=== PATIENT | male | born 1975 | race Caucasian/White ===

== ENCOUNTER 2018-11-17 11:03 | Inpatient (IN) | payer BC ==
[~2018-11-17] VITALS: Ht 175.3 cm; Wt 79.8 kg
[2018-11-17 11:03] VITALS: BP_SYST 136
--- NOTE | 2018-11-17 11:03 | NUR ---
BROUGHT BACK TO BED #8 AND TRIAGED. REPORT GIVEN TO ELIZA
--- NOTE | 2018-11-17 11:07 | NUR ---
Pt AAOx4 presents to ED c/o generalized weakness x 6 days with new onset of mild confusion witnessed by an son. Pt has been taking tylenol for intermittent fevers. Denies N/V/D. Pt lethargic, slow to respond with flat affect. Pt denies pain, but upon standing pt moaning and c/o pain to "joints." No other injuries/complaints per pt/noted. Will continue to monitor.
--- NOTE | 2018-11-17 11:10 | NUR ---
ER Dr. Sharpe at bedside examining patient.
--- NOTE | 2018-11-17 11:15 | NUR ---
Pt ambulated to bathroom with slow, shuffled gait to attempt to provide urine sample. in bathroom assisting pt. Pt unable to urinate at this time, assisted back to bed via wheelchair and placed in position of comfort. # 20 gauge angiocath placed to R AC. Use of asceptic technique. Opsite placed over site. Blood return noted. Blood for lab drawn from site. Flushed with 10 cc of normal saline. No evidence of infiltration noted. Patient tolerated well.
--- NOTE | 2018-11-17 11:55 | NUR ---
Radiology at bedside for CXR
[2018-11-17 12:11] LABS: HEMATOCRIT 49.7 % (36-54); HEMOGLOBIN 17.1 g/dL (14.0-18.0); MEAN CORPUSCULAR HEMOGLOBIN 30 pg (27-31); MEAN CORPUSCULAR HGB CONC 34 % (32-36); MEAN CORPUSCULAR VOLUME 87 fL (79.0-98.0); PLATELET COUNT (AUTO) 57 K/uL (130-430); RED BLOOD CELL COUNT(AUTO) 5.72 MIL/uL (4.2-6.2); RED CELL DISTRIBUTION WIDTH 14.4 % (9.0-15.0); WHITE BLOOD COUNT (AUTO) 25.9 K/uL (4.8-10.8)
[2018-11-17 12:15] LABS: INR 1.1 (0.80-1.20); PROTHROMBIN TIME 11.1 SECS (9.5-12.5)
[2018-11-17 12:23] LABS: ALANINE AMINOTRANSFERASE 73 U/L (12-78); ALBUMIN 2.7 g/dL (3.4-4.8); ANION GAP 13 (5-15); ASPARTATE AMINOTRANSFERASE 103 U/L (10-37); CALCIUM 8.3 mg/dL (8.4-11.0); CHLORIDE 88 mmol/L (98-107); CREATININE 1.93 mg/dL (0.55-1.30); FREE T4 (FREE THYROXINE) 1.4 ng/dl (0.8-1.5); GLUCOSE 148 mg/dL (70-99); SODIUM SERUM 127 mmol/L (136-145); TOTAL BILIRUBIN 5.8 mg/dL (0.0-1.0); UREA NITROGEN, BLOOD 27 mg/dL (8-21)
[2018-11-17 12:25] LABS: GFR AFRICAN AMERICAN 49 mL/min (>90); POTASSIUM 2.7 mmol/L (3.5-5.1)
[2018-11-17 12:26] LABS: ALCOHOL, BLOOD < 3 mg/dL (<10)
[2018-11-17 12:40] LABS: BAND % (MANUAL) 6 % (0-6); BASOPHILS % (MANUAL) 0 % (0-2); EOSINOPHILS % (MANUAL) 0 % (0-7); LYMPHOCYTES % (MANUAL) 2 % (20-46); MONOCYTES % (MANUAL) 4 % (0-11)
[2018-11-17] MEDS ORDERED: cefTRIAXone 1 GM IVPB PREMIX 50 ML IV ONE (13:00)
[2018-11-17] MEDS ORDERED: POTASSIUM CHLORIDE 20 MEQ/PKT PACKET PO ONE (13:00)
[2018-11-17] MEDS ORDERED: NACL 0.9% 1,000 ML IV ONE (13:00)
[2018-11-17] MEDS ORDERED: KCL 40 mEq in 100 mL (PREMIX) 100 ML IV ONE (13:00)
[2018-11-17 13:40] LABS: BILIRUBIN,URINE NEGATIVE (NEGATIVE); BLOOD, URINE 3+ (NEGATIVE); CLARITY/URINE CLEAR (CLEAR); COLOR,URINE YELLOW (YELLOW); GLUCOSE,URINE NEGATIVE (NEGATIVE); KETONES,URINE TRACE (NEGATIVE); LEUKOCYTE ESTERASE ,URINE NEGATIVE (NEGATIVE); NITRITE, URINE NEGATIVE (NEGATIVE); PH,URINE 5.5 (5.0-8.0); PROTEIN URINE 1+ (NEGATIVE)
[2018-11-17] MEDS ORDERED: POTASSIUM CHLORIDE 40 MEQ in NS 250 ML IV ONE (14:00)
--- NOTE | 2018-11-17 14:02 | NUR ---
TAKEN TO RADIOLOGY FOR TESTING
[2018-11-17 14:08] LABS: BARBITURATE, URINE NEGATIVE (NEG <=200); BENZODIAZEPINE, URINE NEGATIVE (NEG <=150); CANNABINOID, URINE NEGATIVE (NEG <=50); COCAINE, URINE NEGATIVE (NEG <=150); METHAMPHETAMINES SCREEN,URINE NEGATIVE (NEG <=500); OPIATE, URINE NEGATIVE (NEG <=100); PHENCYCLIDINE SCREEN,URINE NEGATIVE (NEG <=25); UR TRICYCLIC ANTIDEPRESSANTS NEGATIVE (NEG <=300); URINE AMPHETAMINE NEGATIVE (NEG <=500); URINE METHADONE NEGATIVE (NEG <=200); URINE OXYCODONE SCREEN NEGATIVE (NEG <=100); URINE PROPOXYPHENE SCREEN NEGATIVE (NEG <=300)
[2018-11-17 14:21] LABS: BACTERIA,URINE FEW /HPF (None Seen); FINE GRANULAR CASTS,URINE 0-10 /LPF (None Seen); URINE AMORPHOUS URATE 1+ /HPF (None Seen)
--- NOTE | 2018-11-17 14:37 | NUR ---
Pt states he takes no home medications.
--- NOTE | 2018-11-17 15:03 | NUR ---
ADMISSION NOTE Received patient from ER via cherelle, received report from Reji BEAULIEU. Patient admitted with diagnosis of Acute Colitis, Dehydration. Patient oriented to hospital routine, call light, toileting and safety-patient verbalized understanding.
[2018-11-17] MEDS ORDERED: ONDANSETRON HCL 4 MG/2 ML VIAL IVP PRN (15:15)
--- NOTE | 2018-11-17 15:20 | NUR ---
Patient will be admitted to [facility]. Admitted to Telemetry unit. Will go to room 122-a. Belongings list completed. Summary report printed. Report will be given at bedside. Transfer to tele via ACLS protocol. Licensed nurse present. IV present no signs or symptoms of infiltration.
[2018-11-17] MEDS ORDERED: LEVOFLOXACIN 500 MG/D5W 100 ML IV SCH (15:30)
[2018-11-17 15:35] VITALS: BP_SYST 114
--- NOTE | 2018-11-17 15:47 | NUR ---
round: Dr. Ramirez makes round spoke to the patient and the . Then he has new orders, including Antibiotics.
--- NOTE | 2018-11-17 16:18 | NUR ---
CONSULTATION PAGED/CALLED Reason for Consultation: [] ACUTE COLITIS Person Who was Notified: [] DR FRANK (WAS IN [facility]) Consulting Physician: [] DR FRANK Wharf Tender Specialty: [] ID Ordering Physician: [] DR MORALES
--- NOTE | 2018-11-17 16:19 | NUR ---
CONSULTATION PAGED/CALLED Reason for Consultation: [] ACUTE COLITIS Person Who was Notified: [] [place] Consulting Physician: [] DR BOYER Loss Prevention Coordinator Specialty: [] GI Ordering Physician: [] DR MORALES
[2018-11-17 16:29] VITALS: BP_SYST 101
--- NOTE | 2018-11-17 16:32 | NUR ---
ROUNDS Pt assisted to the bathroom, had diarrhea-pt assisted back to bed. Note pt very weak from the diarrhea this past weak. Dr. Delatorre here to see pt-stated he will order stool collection. Pt's family at bedside. Call light within reach.
[2018-11-17] MEDS: KCL 20 mEq in D5NS 1000 mL 1,000 ML IV SCH (16:57)
--- NOTE | 2018-11-17 17:45 | NUR ---
Critical result: Page Dr. Flores due to the result of Procalcitonin critical =24.95. Addendum: 11/17/18 at 1810 by Jose Chapman RN Also page Dr. Ramirez with the same reason. Because Procalcitonin was ordered by both Zaki.
[2018-11-17] MEDS: PIPERACILLIN/TAZO 2.25G/DEX-IS 50 ML IV SCH (18:45)
[2018-11-17] MEDS ORDERED: MAGNESIUM CITRATE 300 ML ORAL SOLUTION PO ONE (19:00)
[2018-11-17] MEDS ORDERED: SORBITOL 70% SOLUTION, 30 ML UDBTL PO ONE (19:00)
--- NOTE | 2018-11-17 19:31 | NUR ---
CLOSING NOTE Pt sitting up in bed visiting with his , no s/s resp distress, no c/o pain. C/o feeling "achy" off and on. Pt seen by Dr. Oquendo earlier and is aware of colonoscopy in the morning. Pt's Viktoriya at bedside. IVF infusing well to RAC at ordered rate with no s/s infiltration to site. Needs met, call light within reach.
--- NOTE | 2018-11-17 19:45 | NUR ---
Opening notes Patient resting in bed. No signs of distress noted. Breathing is even and unlabored. Patient has a temperature of 100.2, states he does not want any medications for it. Provided patient with ice packs. IV is patent and intact infusing fluids. No needs at this time. Call light with the patient. Safety precautions in place. Addendum: 11/17/18 at 2349 by Ilene Gonzalez RN Consent for colonoscopy signed by patient's Miranda Jimenez. Consent placed in chart.
[2018-11-17 20:00] VITALS: BP_SYST 130
[2018-11-17] MEDS ORDERED: ENOXAPARIN SODIUM 30 MG/0.3 ML SYRINGE SUBCUT SCH (21:00)
[2018-11-17] MEDS: metroNIDAZOLE 500 mg/NS 100 ML IV SCH (22:24)
[2018-11-17] MEDS ORDERED: LACTULOSE 20 GM/30 ML UDC PO SCH (22:30)
--- NOTE | 2018-11-17 22:30 | NUR ---
Spoke to Dr. Oquendo Informed MD medication sorbitol unavailable at this time. New orders for lactulose implemented and carried out.
--- NOTE | 2018-11-17 23:50 | NUR ---
Magnesium citrate prep complete
--- NOTE | 2018-11-18 | NUR ---
Patient NPO/Spoke to MD Spoke to Dr. Flores in regards to positive blood cultures = Gram + cocci. No new orders. Wait final result.
[2018-11-18 00:24] VITALS: BP_SYST 126
[2018-11-18] MEDS: PIPERACILLIN/TAZO 2.25G/DEX-IS 50 ML IV SCH ×5 (00:44→23:13)
--- NOTE | 2018-11-18 02:17 | NUR ---
Assisted patient to bedside commode Patient weak and needs assistance to commode.
--- NOTE | 2018-11-18 02:37 | NUR ---
Stool sent to lab for testing
[2018-11-18] MEDS: KCL 20 mEq in D5NS 1000 mL 1,000 ML IV SCH ×4 (03:53→22:45)
[2018-11-18] MEDS ORDERED: KCL 20 mEq in D5NS 1000 mL 1,000 ML IV ONE (03:59)
[2018-11-18] MEDS: metroNIDAZOLE 500 mg/NS 100 ML IV SCH ×3 (05:14→21:14)
--- NOTE | 2018-11-18 05:30 | NUR ---
Tap water enema 1500 ml of tap water instilled. Patient tolerated well. Bowels are clear and yellow tinged.
--- NOTE | 2018-11-18 06:45 | NUR ---
Patient had BM/Tap water enema noted brown sediments. Another tap water enema done. Instilled 1500 ml. Noted clear and yellow tinged bowels.
--- NOTE | 2018-11-18 07:00 | NUR ---
Closing notes Patient resting in bed. Hygiene care provided by GEOMAGNETICIAN. Patient denies any pain or discomfort at this time. IV is patent and intact. All needs met throughout the shift. NPO status maintain since midnight. Call light with the patient. Safety precautions in place. Will endorse care to day shift RN.
[2018-11-18 07:04] LABS: BASOPHILS # (AUTO) 0.2 K/uL (0.0-0.2); BASOPHILS % (AUTO) 0.5 % (0.0-2.0); EOSINOPHILS % (AUTO) 0.1 % (0.0-4.0); HEMATOCRIT 44.4 % (36-54); HEMOGLOBIN 15.1 g/dL (14.0-18.0); LYMPHOCYTES # (AUTO) 1.1 K/uL (1.0-5.5); LYMPHOCYTES % (AUTO) 3.8 % (20.5-51.5); MEAN CORPUSCULAR HEMOGLOBIN 30 pg (27-31); MEAN CORPUSCULAR HGB CONC 34 % (32-36); MEAN CORPUSCULAR VOLUME 88 fL (79.0-98.0); MONOCYTES % (AUTO) 6.9 % (1.7-9.3); NEUTROPHILS # (AUTO) 26.1 K/uL (1.8-7.7); PLATELET COUNT (AUTO) 78 K/uL (130-430); RED BLOOD CELL COUNT(AUTO) 5.07 MIL/uL (4.2-6.2); RED CELL DISTRIBUTION WIDTH 14.6 % (9.0-15.0); WHITE BLOOD COUNT (AUTO) 29.4 K/uL (4.8-10.8)
[2018-11-18 07:14] LABS: NEUTROPHILS % (AUTO) 88.7 % (40.0-70.0)
--- NOTE | 2018-11-18 07:25 | NUR ---
AM ROUNDS: BEDSIDE REPORT GIVEN BY NIGHT NURSE TERESA.PATIENT AWAKE DURING ROUNDS. INSTRUCTED PATIENT ,NOTHING BY MOUTH AND UNDERSTANDS THE TEACHINGS. FOR COLONOSCOPY TODAY. CALL LIGHT WITH IN REACH. BED LOCKED AT LOWEST POSITION.CONTINUE TO MONITOR.
[2018-11-18 07:41] LABS: PROTHROMBIN TIME 10.6 SECS (9.5-12.5)
[2018-11-18 07:55] VITALS: BP_SYST 117
[2018-11-18 07:59] LABS: ALANINE AMINOTRANSFERASE 72 U/L (12-78); ALBUMIN 2.2 g/dL (3.4-4.8); ANION GAP 13 (5-15); ASPARTATE AMINOTRANSFERASE 99 U/L (10-37); CALCIUM 7.4 mg/dL (8.4-11.0); CHLORIDE 94 mmol/L (98-107); CREATININE 1.71 mg/dL (0.55-1.30); GLUCOSE 159 mg/dL (70-99); LIPASE 233 U/L (73-393); PHOSPHORUS 2.4 mg/dL (2.7-4.5); SODIUM SERUM 129 mmol/L (136-145); UREA NITROGEN, BLOOD 29 mg/dL (8-21)
[2018-11-18] MEDS ORDERED: SIMETHICONE 40 MG/0.6 ML ML ONE (08:03)
[2018-11-18 08:05] LABS: GFR AFRICAN AMERICAN 57 mL/min (>90)
[2018-11-18 08:08] LABS: ACETAMINOPHEN < 1 ug/mL (1-30)
[2018-11-18] MEDS: MEPERIDINE HCL/PF 100 MG/ML AMP ONE ×2 (09:23→09:25)
[2018-11-18] MEDS: MIDAZOLAM HCL 5 MG/5 ML VIAL ONE ×3 (09:23→09:29)
[2018-11-18] MEDS ORDERED: MAGNESIUM SULFATE 4 GM in D5W 250 ML IV ONE (09:30)
[2018-11-18] MEDS ORDERED: POTASSIUM CHLORIDE 20 MEQ TAB.PRT.SR PO ONE (09:30)
[2018-11-18 10:20] VITALS: BP_SYST 112
--- NOTE | 2018-11-18 10:20 | NUR ---
BACK FROM GI: PATIENT DROWSY BUT ABLE TO RESPOND TO NAME AND OPEN HIS EYES. AT THE BEDSIDE. VITAL SIGNS TAKEN.AFEBRILE AND STABLE. NO DISTRESS.GI REPORT RECEIVED FROM ANGELICA.
--- NOTE | 2018-11-18 11:15 | NUR ---
ABDOMINAL US: ABDOMINAL US DONE AT THE BEDSIDE.
[2018-11-18 11:42] VITALS: BP_SYST 112
--- NOTE | 2018-11-18 12:35 | NUR ---
D/C Patient Patient given medication reconciliation form and D/C instructions. Exit Care provided. Patient verbalized understanding. MD discussed with daughter/ patient the results and treatment provided. Ambulatory with steady gait with assistance for discharge to home. Patient in stable condition, ID band removed. IV catheter removed, intact and dressing applied, no active bleeding. Rx of antibiotics/prilosec po given to daughter. Patient educated on pain management. All belongings sent with patient. Addendum: 11/18/18 at 1317 by Magalie Cuello RN not intended to the above patient.
--- NOTE | 2018-11-18 12:35 | NUR ---
D/C Patient Patient given medication reconciliation form and D/C instructions. Exit Care provided. Patient verbalized understanding. MD discussed with daughter/ patient the results and treatment provided. Ambulatory with steady gait for discharge to home. Patient in stable condition, ID band removed. IV catheter removed, intact and dressing applied, no active bleeding. Rx of antibiotics/prilosec given to patient's daughter. Patient educated on pain management. All belongings sent with patient. Addendum: 11/18/18 at 1316 by Magalie Cuello RN no notes-error Addendum: 11/18/18 at 1317 by Magalie Cuello RN not intended to the above patient.
--- NOTE | 2018-11-18 12:56 | NUR ---
Dietitian Recommendations * Consider advance diet if/when medically appropriate LP, RD Please refer to Nutrition Assessment for details.
--- NOTE | 2018-11-18 13:37 | NUR ---
Gi Paged: Called Dr. Oquendo's exchange and left message to medical assistance Alejandrina for diet.
[2018-11-18 14:02] LABS: HEPATITIS A AB, IgM Negative (Negative)
--- NOTE | 2018-11-18 16:25 | NUR ---
Transfer Care: Endorsed to Edwina Andino to [facility] care.Patient in stable condition.
--- NOTE | 2018-11-18 16:30 | NUR ---
Notes- assumed care from yadira RN, Pt in bed, resting. family at bedside. no acute distress noted. IVF infusing well. Enc to call for help as needed. Family verbalize understanding.
[2018-11-18 16:45] VITALS: BP_SYST 119
[2018-11-18] MEDS ORDERED: BISACODYL 5 MG TABLET.DR (DULCOLAX) PO ONE (17:00)
[2018-11-18] MEDS: VANCOMYCIN HCL 125 MG CAPSULE PO SCH ×2 (17:39→20:17)
--- NOTE | 2018-11-18 17:52 | NUR ---
Notes- Assisted pt to the bathroom with moderate assistance x2 person. pt feels very weak. refuses to use bedside commode. Safety precaution observed. will monitor.
--- NOTE | 2018-11-18 18:30 | NUR ---
NOTES- RESTING IN BED, FAMILY AT BEDSIDE. IVF INFUSING WELL.NO ACUTE DISTRESS NOTED. WILL ENDORSE
--- NOTE | 2018-11-18 19:10 | NUR ---
OPENING NOTES Late entry due to patient care. Bedside report received from dayshift nurse. Patient received lying in bed, lethargic, no s/s of acute distress. Breathing even and unlabored. IVF infusing well. IV site patent, no signs of infiltration or infection noted. Call light with patient, bed alarm on. Bed is locked and at lowest position. Will continue to monitor.
[2018-11-18 20:00] VITALS: BP_SYST 129
--- NOTE | 2018-11-18 21:00 | NUR ---
MAN CARE Patient receiving man care from MDS NURSE. Patient tolerating procedure well. No s/s of acute distress noted. All needs met at this time. Call light with patient. Bed alarm on. Will continue to monitor.
--- NOTE | 2018-11-18 23:00 | NUR ---
WALKED TO BATHROOM Patient got up on his own and walked to the bathroom to have BM. Patient assisted back to bed and cleaned by RN. New sheets, gown, and socks provided. Patient advised to call for help next time so he can be assisted to the bathroom, patient verbalized understanding. IVF infusing well. All needs met at this time. Call light with patient. Bed alarm on. Bed is locked and at lowest position. Will continue to monitor.
[2018-11-18] MEDS ORDERED: KCL 20 mEq in 100 mL (PREMIX) 100 ML IV ONE (23:44)
[2018-11-19 00:41] VITALS: BP_SYST 120
--- NOTE | 2018-11-19 01:00 | NUR ---
ROUNDS Patient in bed sleeping at this time. No s/s of acute distress noted. Breathing even and unlabored. IVF infusing well. Call light with patient. Bed alarm on. Will continue to monitor.
--- NOTE | 2018-11-19 03:00 | NUR ---
ROUNDS Patient sleeping comfortably. No signs of discomfort noted. Chest rise and fall even bilaterally. IVF infusing well. Call light with patient. Bed alarm on. Will continue to monitor.
--- NOTE | 2018-11-19 05:00 | NUR ---
ROUNDS Patient in bed sleeping at this time. No signs of discomfort noted. Chest rise and fall even bilaterally. Call light with patient. Bed alarm on. Will continue to monitor.
[2018-11-19] MEDS: PIPERACILLIN/TAZO 2.25G/DEX-IS 50 ML IV SCH ×4 (05:23→23:00)
[2018-11-19] MEDS: metroNIDAZOLE 500 mg/NS 100 ML IV SCH ×3 (05:57→21:07)
[2018-11-19] MEDS: KCL 20 mEq in D5NS 1000 mL 1,000 ML IV SCH ×3 (05:59→21:57)
--- NOTE | 2018-11-19 06:34 | NUR ---
CLOSING NOTES Patient in bed sleeping comfortably at this time. No s/s of acute distress noted. Breathing even and unlabored. IVF infusing well, IV site patent, no signs of infiltration or infection noted. All needs met throughout shift. Fall and safety precautions maintained throughout shift. Will continue to monitor until patient care is endorsed to oncoming dayshift nurse.
[2018-11-19 06:53] LABS: BASOPHILS % (AUTO) 0.2 % (0.0-2.0); EOSINOPHILS % (AUTO) 0.2 % (0.0-4.0); HEMATOCRIT 38.2 % (36-54); HEMOGLOBIN 13.1 g/dL (14.0-18.0); LYMPHOCYTES # (AUTO) 1.2 K/uL (1.0-5.5); LYMPHOCYTES % (AUTO) 5.3 % (20.5-51.5); MEAN CORPUSCULAR HEMOGLOBIN 30 pg (27-31); MEAN CORPUSCULAR HGB CONC 34 % (32-36); MEAN CORPUSCULAR VOLUME 88 fL (79.0-98.0); MONOCYTES # (AUTO) 1.6 K/uL (0.0-1.0); MONOCYTES % (AUTO) 7.2 % (1.7-9.3); NEUTROPHILS # (AUTO) 19.7 K/uL (1.8-7.7); PLATELET COUNT (AUTO) 99 K/uL (130-430); RED BLOOD CELL COUNT(AUTO) 4.35 MIL/uL (4.2-6.2); RED CELL DISTRIBUTION WIDTH 14.5 % (9.0-15.0); WHITE BLOOD COUNT (AUTO) 22.6 K/uL (4.8-10.8)
[2018-11-19 06:56] LABS: CALCIUM 7.2 mg/dL (8.4-11.0); CREATININE 1.37 mg/dL (0.55-1.30); PHOSPHORUS 2.7 mg/dL (2.7-4.5); POTASSIUM 3.1 mmol/L (3.5-5.1)
--- NOTE | 2018-11-19 07:30 | NUR ---
Opening Note patient resting in bed, awake and alert, denies pain, no signs of distress, educated patient on use of call light for assistance, verbalized understanding, call light and bedside table left within reach, safety precautions in place, bed alarm on, will continue to monitor
[2018-11-19 07:34] LABS: NEUTROPHILS % (AUTO) 87.1 % (40.0-70.0)
[2018-11-19 08:30] VITALS: BP_SYST 121
[2018-11-19] MEDS: VANCOMYCIN HCL 125 MG CAPSULE PO SCH ×4 (08:58→20:41)
--- NOTE | 2018-11-19 09:00 | NUR ---
Medications administered as scheduled, educated patient regarding med, verbalized understanding, he is lethargic in bed, patient denies pain, educated him on pain management and to let me know if he is in pain so I can inform MD, verbalized understanding, no other needs at this time, educated patient on use of call light for assistance, verbalized understanding, call light and bedside table left within reach, will continue to monitor
--- NOTE | 2018-11-19 10:45 | NUR ---
Visiting updated her with plan of care, verbalized understanding, will continue to monitor patient
--- NOTE | 2018-11-19 11:50 | NUR ---
Antibiotics hung at this time, educated patient and regarding med, verbalized understanding, IV site remains patent, safety precautions in place, will continue to monitor
[2018-11-19 12:29] VITALS: BP_SYST 116
--- NOTE | 2018-11-19 14:10 | NUR ---
New IV fluids hung at this time, also administered meds as scheduled, educated patient regarding meds, verbalized understanding, tolerated well, IV site remains patent, states it hurts to reach over to the table, asked if patient wanted anything for pain at this time, stated he doesn't want anything, stated "we'll just see how it goes." educated him to let me know if he needs anything or if his pain is intolerable, verbalized understanding, no other needs at this time, educated patient on use of call light for assistance, verbalized understanding, safety precautions in place, will continue to monitor
[2018-11-19] MEDS ORDERED: POTASSIUM CHLORIDE 20 MEQ TAB.PRT.SR PO ONE (15:00)
--- NOTE | 2018-11-19 15:08 | NUR ---
Dr. Anne Rounded examined patient, at bedside, stated all questions answered by MD at this time, will implement new orders
[2018-11-19 16:06] VITALS: BP_SYST 129
--- NOTE | 2018-11-19 17:17 | NUR ---
Meds administered as scheduled, educated patient regarding med, verbalized understanding, tolerated well, visitors at bedside, educated patient on use of call light for assistance, verbalized understanding, safety precautions in place, will continue to monitor
--- NOTE | 2018-11-19 19:10 | NUR ---
Closing Note patient resting in bed, awake and alert, visitors at bedside, IV fluids infusing, no complaints of pain at this time, educated patient on use of call light for assistance, verbalized understanding, call light and bedside table left within reach, endorsed to slot shift supervisor nurse
--- NOTE | 2018-11-19 19:10 | NUR ---
OPENING NOTES Bedside report received from dayshift nurse. Patient received lying in bed AOx3, watching TV, family members present at bedside. No s/s of acute distress noted. Breathing is even and unlabored. IVF infusing well, IV site patent, no signs of infiltration or infection noted. Patient denies any pain or discomfort at this time. Call light with patient. Bed alarm off at this time, patient and family members educated on its purpose and agree to have it on when family leaves later tonight. Bed is locked and at lowest position. Will continue to monitor.
[2018-11-19 20:00] VITALS: BP_SYST 125
--- NOTE | 2018-11-19 21:00 | NUR ---
ROUNDS Patient in the bathroom at this time. Patient escorted by his and son. Patient and family members informed to let RN know if they need any assistance, all verbalized understanding.
--- NOTE | 2018-11-19 23:00 | NUR ---
ROUNDS/IV ANTIBIOTIC Patient in bed sleeping. No signs of discomfort noted. Chest rise and fall even bilaterally. IV antibiotic hung at this time. IVF infusing well. Call light with patient. Will continue to monitor.
[2018-11-19 23:56] VITALS: BP_SYST 100
[2018-11-20 00:07] VITALS: BP_SYST 100; BP_SYST 120
[2018-11-20] MEDS: KCL 20 mEq in D5NS 1000 mL 1,000 ML IV SCH ×3 (00:07→21:39)
--- NOTE | 2018-11-20 01:00 | NUR ---
ROUNDS/EMPTIED URINAL Patient in bed sleeping at this time. No signs of discomfort noted. Chest rise and fall even bilaterally. IVF infusing well. Urinal emptied at this time. Call light with patient. Bed alarm on. Will continue to monitor.
[2018-11-20] MEDS: PIPERACILLIN/TAZO 2.25G/DEX-IS 50 ML IV SCH ×2 (04:59→11:18)
--- NOTE | 2018-11-20 05:00 | NUR ---
ROUNDS/IV ANTIBIOTIC Patient in bed resting. No signs of discomfort noted. Chest rise and fall even bilaterally. IV antibiotic hung, infusing well. Call light with patient. Bed alarm on. Will continue to monitor.
[2018-11-20] MEDS: metroNIDAZOLE 500 mg/NS 100 ML IV SCH ×3 (05:33→21:39)
--- NOTE | 2018-11-20 06:39 | NUR ---
CLOSING NOTES Patient in bed sleeping comfortably. No s/s of acute distress noted. Breathing is even and unlabored. IVF infusing well, IV site patent, no signs of infiltration or infection noted. All needs met throughout shift. Fall and safety precautions maintained throughout shift. Will continue to monitor until patient care is endorsed to oncoming day shift nurse.
[2018-11-20 06:49] LABS: BASOPHILS % (AUTO) 0.2 % (0.0-2.0); EOSINOPHILS # (AUTO) 0.1 K/uL (0.0-0.4); EOSINOPHILS % (AUTO) 0.5 % (0.0-4.0); HEMATOCRIT 36.7 % (36-54); HEMOGLOBIN 12.4 g/dL (14.0-18.0); LYMPHOCYTES # (AUTO) 1.1 K/uL (1.0-5.5); LYMPHOCYTES % (AUTO) 5.3 % (20.5-51.5); MEAN CORPUSCULAR HEMOGLOBIN 30 pg (27-31); MEAN CORPUSCULAR HGB CONC 34 % (32-36); MEAN CORPUSCULAR VOLUME 88 fL (79.0-98.0); MONOCYTES # (AUTO) 1.5 K/uL (0.0-1.0); MONOCYTES % (AUTO) 7.2 % (1.7-9.3); NEUTROPHILS # (AUTO) 18.2 K/uL (1.8-7.7); NEUTROPHILS % (AUTO) 86.8 % (40.0-70.0); PLATELET COUNT (AUTO) 145 K/uL (130-430); RED BLOOD CELL COUNT(AUTO) 4.18 MIL/uL (4.2-6.2); RED CELL DISTRIBUTION WIDTH 14.6 % (9.0-15.0)
--- NOTE | 2018-11-20 07:20 | NUR ---
Opening Note patient resting in bed, eyes closed, breathing unlabored and symmetrical, safety precautions remain in place, call light and bedside table left within reach, bed alarm on, will continue to monitor patient
[2018-11-20 08:10] VITALS: BP_SYST 119
[2018-11-20] MEDS: VANCOMYCIN HCL 125 MG CAPSULE PO SCH ×2 (08:21→14:48)
--- NOTE | 2018-11-20 08:21 | NUR ---
Medication given at this time as scheduled, educated patient regarding med, verbalized understanding, tolerated well, educated patient on use of call light for assistance, verbalized understanding, call light and bedside table left within reach, will continue to monitor patient
[2018-11-20 08:40] LABS: CALCIUM 7.1 mg/dL (8.4-11.0); CREATININE 1.56 mg/dL (0.55-1.30); POTASSIUM 3.5 mmol/L (3.5-5.1)
[2018-11-20 08:41] LABS: ALBUMIN 1.6 g/dL (3.4-4.8); TOTAL BILIRUBIN 2.5 mg/dL (0.0-1.0)
--- NOTE | 2018-11-20 10:00 | NUR ---
IV fluids hung patient resting in bed, IV site remains patent, educated patient on use of call light for assistance, verbalized understanding, call light and bedside table left within reach, will continue to monitor patient
[2018-11-20 10:45] LABS: INR 1.1 (0.80-1.20); PROTHROMBIN TIME 11.5 SECS (9.5-12.5)
--- NOTE | 2018-11-20 11:21 | NUR ---
Nutrition F/U RD reviewed pt's current EMR including diet Hx, physician notes, nursing notes, pertinent labs/meds/procedures, care trends and care activity. Current Diet Order: Soft Low Fiber/Citrus Subjective information: Pt seen sitting up in chair at time of RD visit. Pt denied any abd discomfort, denied any N/V. Pt also reported of tolerating current diet order. Breakfast tray at bedside, untouched. Pt stated that he will be working on breakfast soon. Per EMR, PO intake 50% average of 3 meals 11/19. Pt is not yet meeting adequate nutrition w/ current PO intake. Pt declined addition of ONS, RD encouraged pt to increase PO intake. EER re-calculated for increased nutrient needs for sepsis. Current PO intake: 50% average of 3 meals 11/19 (NEW) Estimated Energy Expenditure (kcals/day) 2195-0329 kcal/day (30-35 kcal/kg CBW for Sepsis) (NEW) Estimated Protein Required (g/day) 48-120 gm/day (0.6-1.5 gm/kg CBW for elevated Renal labs and Sepsis) Estimated Fluid Required (l/day) 2.4-2.8 L/day (30-35 ml/kg CBW for maintenance) Problem/Etiology/Signs/Symptoms Altered GI function related to unknown etiology as evidenced by Dx of acute colitis and dehydration. (*improved) Inadequate nutrient intake r/t altered GI function AEB PO intake <75% of estimated needs. (*new 11/20) Expected Outcomes/Goals - Monitor appetite, and PO intakes w/ goal of pt meeting at least 75% of estimated nutritional needs, labs trending WNL, normal GI function, and skin integrity/wt maintenance Dietitian Recommendations * Continue Soft Low Fiber/Citrus diet per MD orders. * Encourage pt to increase PO intake. Follow Up High Risk: F/U in 2-3days
--- NOTE | 2018-11-20 11:29 | NUR ---
Dietitian Recommendations * Continue Soft Low Fiber/Orrick diet per MD orders. * Encourage pt to increase PO intake. Please see Nutrition F/U note for details. HENRY, RD
[2018-11-20 12:50] VITALS: BP_SYST 120
[2018-11-20] MEDS ORDERED: VANCOMYCIN HCL 1 GM/NS PREMIX 250 ML IV ONE (13:15)
--- NOTE | 2018-11-20 13:30 | NUR ---
Patient taken to Commode weak, educated him on safety precautions, verbalized understanding, had a bowel movement, was returned to bed, educated patient on use of call light for assistance, verbalized understanding, call light and bedside table left within reach, will continue to monitor patient
--- NOTE | 2018-11-20 15:29 | NUR ---
Paged Dr. Anne for pain medication , called back and stated he will be by to see the patient first and will make rounds soon. will await MD rounds
[2018-11-20 16:11] VITALS: BP_SYST 104
[2018-11-20] MEDS ORDERED: VANCOMYCIN HCL ORAL SOLUTION 250 MG/5 ML, 80 ML PO SCH ×2 (16:21→16:33)
[2018-11-20] MEDS: VANCOMYCIN HCL 250 MG/5 ML PO SCH ×2 (17:38→20:58)
--- NOTE | 2018-11-20 17:40 | NUR ---
Mai Given PO/Dr. Anne Rounds patient educated regarding meds, verbalized understanding, tolerated well. MD rounded examined patient, will follow through with MD orders
--- NOTE | 2018-11-20 17:56 | NUR ---
Nephro consult called: for Dr. Price (Dr. Muro television cameraman), regarding [place], ordered by Dr. Anne, spoke with Erica at exchange.
[2018-11-20] MEDS ORDERED: traMADol HCL HCL 50 MG TABLET (ULTRAM) PO PRN (18:00)
--- NOTE | 2018-11-20 18:03 | NUR ---
Dr. Muro Called updated her with patient labs, verbalized understanding, stated she will be by tomorrow to see patient
--- NOTE | 2018-11-20 18:50 | NUR ---
Closing Note patient resting in bed, awake and alert, no signs of distress, patient stated 0/10 pain, educated him on pain management and PRN meds, verbalized understanding, IV fluids infusing, educated patient on use of call light for assistance, verbalized understanding, call light and bedside table left within reach, will endorse to welder 2nd shift nurse
--- NOTE | 2018-11-20 19:25 | NUR ---
OPENING NOTE Patient on BSC with RESIDENT CARE COORDINATOR at the bedside. Breathing unlabored and even on room air. No signs of distress, no needs at this time. Fall and safety precautions in place. Bed in lowest position, brake on, call light within reach. IVF infusing as ordered. Will continue to monitor.
[2018-11-20 20:05] VITALS: BP_SYST 121
--- NOTE | 2018-11-20 20:12 | NUR ---
MD KAMARA PAGED DR. FRANK; DR BWODEN ESTIMATOR JAYLEEN Addendum: 11/20/18 at 2018 by Adriana Baird [place]/ SPOKE WITH JAYLEEN
--- NOTE | 2018-11-20 20:16 | NUR ---
Dr. Muro at the bedside.
--- NOTE | 2018-11-20 20:50 | NUR ---
PAGED x2 SECOND PAGE SENT OUT TO DR. FRANK; DR. BOWDEN BLUEBERRY GROWER
[2018-11-20] MEDS: CEFEPIME 1 GM in D5W 50 ML IV SCH (20:58)
--- NOTE | 2018-11-20 21:05 | NUR ---
Med pass. IV abx hung
--- NOTE | 2018-11-20 21:42 | NUR ---
IV abx tom. New IVF tom. Emptied patient's urinal: 275cc
--- NOTE | 2018-11-20 22:01 | NUR ---
Dr. Delatorre called back. Informed him that blood culture ID came back. Dr. Delatorre ordered Vanco IV pharmacy to dose. Patient already received first dose of IV vanco today. Ordered entered. Addendum: 11/20/18 at 2203 by Ayla Zuniga RN Dr. Delatorre wants to keep patient on PO vanco and IV vanco.
--- NOTE | 2018-11-20 23:07 | NUR ---
Patient resting in bed with eyes closed. Breathing unlabored and even on room air. No signs of distress, no needs at this time. Fall and safety precautions in place. Bed in lowest position, brake on, alarm on, call light within reach. IVF infusing as ordered. Will continue to monitor.
[2018-11-21] VITALS: BP_SYST 112
[2018-11-21] MEDS ORDERED: VANCOMYCIN HCL 1,250 MG in NS 250 ML IV SCH (04:00)
[2018-11-21] MEDS ORDERED: VANCOMYCIN HCL 1000 MG/VIAL IV ONE (04:13)
[2018-11-21] MEDS ORDERED: VANCOMYCIN HCL 500 MG/VIAL IV ONE (04:13)
--- NOTE | 2018-11-21 04:26 | NUR ---
IV abx hung
--- NOTE | 2018-11-21 04:36 | NUR ---
Patient c/o right arm pain. Administered PRN tramadol PO as ordered
[2018-11-21] MEDS: KCL 20 mEq in D5NS 1000 mL 1,000 ML IV SCH ×2 (06:00→12:36)
[2018-11-21 06:29] LABS: BASOPHILS # (AUTO) 0.1 K/uL (0.0-0.2); BASOPHILS % (AUTO) 0.7 % (0.0-2.0); EOSINOPHILS # (AUTO) 0.1 K/uL (0.0-0.4); EOSINOPHILS % (AUTO) 0.3 % (0.0-4.0); HEMATOCRIT 36.7 % (36-54); HEMOGLOBIN 12.5 g/dL (14.0-18.0); LYMPHOCYTES # (AUTO) 1.3 K/uL (1.0-5.5); LYMPHOCYTES % (AUTO) 6.4 % (20.5-51.5); MEAN CORPUSCULAR HEMOGLOBIN 30 pg (27-31); MEAN CORPUSCULAR HGB CONC 34 % (32-36); MEAN CORPUSCULAR VOLUME 89 fL (79.0-98.0); MONOCYTES % (AUTO) 5.2 % (1.7-9.3); NEUTROPHILS # (AUTO) 17.1 K/uL (1.8-7.7); NEUTROPHILS % (AUTO) 87.4 % (40.0-70.0); PLATELET COUNT (AUTO) 217 K/uL (130-430); RED BLOOD CELL COUNT(AUTO) 4.13 MIL/uL (4.2-6.2); RED CELL DISTRIBUTION WIDTH 14.7 % (9.0-15.0); WHITE BLOOD COUNT (AUTO) 19.6 K/uL (4.8-10.8)
[2018-11-21] MEDS: metroNIDAZOLE 500 mg/NS 100 ML IV SCH ×3 (06:29→21:42)
--- NOTE | 2018-11-21 06:31 | NUR ---
IV abx hung
--- NOTE | 2018-11-21 06:33 | NUR ---
CLOSING NOTE Patient resting in bed with eyes closed. Breathing unlabored and even on room air. No signs of distress, no needs at this time. Fall and safety precautions in place. Bed in lowest position, brake on, alarm on, call light within reach. IVF infusing as ordered. Will endorse cares to day shift nurse.
[2018-11-21 07:00] LABS: CALCIUM 7.4 mg/dL (8.4-11.0); CREATININE 1.65 mg/dL (0.55-1.30); POTASSIUM 3.7 mmol/L (3.5-5.1)
--- NOTE | 2018-11-21 07:15 | NUR ---
Opening note Patient resting in bed, A/O x4. No SOB, no complaints of pain. Iv site patent, intact. and infusing as ordered. No infiltration noted. Bowel sounds active, Lung sounds clear. On contact Isolation precautions, fall precautions, reinforced. Bed kept in lowest position, bed alarm on, educated patient on the call light system, verbalized understanding. call light within reach. Will continue to monitor.
[2018-11-21 08:29] VITALS: BP_SYST 106
[2018-11-21] MEDS: CEFEPIME 1 GM in D5W 50 ML IV SCH (09:11)
[2018-11-21] MEDS: VANCOMYCIN HCL 250 MG/5 ML PO SCH ×2 (09:12→13:56)
--- NOTE | 2018-11-21 10:00 | NUR ---
Rounds Patient resting in bed, no complaints of pain, A/O x 3 at this time.
[2018-11-21 12:34] VITALS: BP_SYST 123
--- NOTE | 2018-11-21 13:19 | NUR ---
BRP: Assisted by ASSOCIATE APPLICATION DEVELOPER to the restroom. Offered to seat on the chair but wants to go back to bed. Encouraged to increase ambulation, patient and spouse verbalized understanding.
--- NOTE | 2018-11-21 14:18 | NUR ---
Rounds Patient resting in bed, family at bedside. No complaints of pain. Patient is A/Ox 4 at this time. no nausea, no vomiting.
--- NOTE | 2018-11-21 16:06 | NUR ---
IV site Reinserted IV on left hand 22 gauge, patent, intact, and infusing as ordered.
--- NOTE | 2018-11-21 16:20 | NUR ---
ACTIVITY: Assisted to bedside chair. Encouraged to increase ambulation/ activity. Verbalized understanding.
[2018-11-21 16:42] VITALS: BP_SYST 129
--- NOTE | 2018-11-21 19:11 | NUR ---
Closing note Patient resting in bed, A/O x4. Family at bedtime. No SOB, no complaints of pain. Iv site patent, intact. and infusing as ordered. No infiltration noted. Bowel sounds active, Lung sounds clear. On contact Isolation precautions, fall precautions, reinforced. Bed kept in lowest position, bed alarm on, educated patient on the call light system, verbalized understanding. call light within reach. All needs met at this time
--- NOTE | 2018-11-21 19:20 | NUR ---
OPENING NOTE Received report from Jasmin. Patient resting in bed awake, alert, oriented x4. Breathing unlabored and even on room air. No signs of distress, no needs at this time. Fall, safety, contact precautions in place. Bed in lowest position, brake on, alarm on, call light within reach. Will continue to monitor.
[2018-11-21] MEDS: ceFAZolin SODIUM 1 GM in D5W 50 ML IV SCH (20:24)
--- NOTE | 2018-11-21 20:25 | NUR ---
IV abx hung. Emptied urinal: 150cc
[2018-11-21 20:30] VITALS: BP_SYST 115
--- NOTE | 2018-11-21 21:43 | NUR ---
IV abx hung
--- NOTE | 2018-11-21 23:41 | NUR ---
Patient resting in bed awake, alert, oriented x4. Breathing unlabored and even on room air. No signs of distress, no needs at this time. Fall, safety, contact precautions in place. Bed in lowest position, brake on, alarm on, call light within reach. Will continue to monitor.
[2018-11-22] MEDS: KCL 20 mEq in D5NS 1000 mL 1,000 ML IV SCH ×4 (01:22→22:23)
--- NOTE | 2018-11-22 01:23 | NUR ---
New IVF hung
[2018-11-22 01:39] VITALS: BP_SYST 125
--- NOTE | 2018-11-22 03:53 | NUR ---
Patient resting in bed awake, alert, oriented x4. Breathing unlabored and even on room air. No signs of distress, no needs at this time. Fall, safety, contact precautions in place. Bed in lowest position, brake on, alarm on, call light within reach. Will continue to monitor. Addendum: 11/22/18 at 0354 by Ayla Zuniga RN Patient resting in bed with eyes closed. Breathing unlabored and even on room air. No signs of distress, no needs at this time. Fall, safety, contact precautions in place. Bed in lowest position, brake on, alarm on, call light within reach. IVF infusing as ordered. Will continue to monitor.
[2018-11-22] MEDS: metroNIDAZOLE 500 mg/NS 100 ML IV SCH ×3 (05:40→23:03)
--- NOTE | 2018-11-22 05:43 | NUR ---
IV abx hung
[2018-11-22 06:34] LABS: BASOPHILS # (AUTO) 0.2 K/uL (0.0-0.2); BASOPHILS % (AUTO) 0.9 % (0.0-2.0); EOSINOPHILS # (AUTO) 0.1 K/uL (0.0-0.4); EOSINOPHILS % (AUTO) 0.8 % (0.0-4.0); HEMATOCRIT 34.9 % (36-54); HEMOGLOBIN 11.8 g/dL (14.0-18.0); LYMPHOCYTES # (AUTO) 1.4 K/uL (1.0-5.5); LYMPHOCYTES % (AUTO) 7.2 % (20.5-51.5); MEAN CORPUSCULAR HEMOGLOBIN 30 pg (27-31); MEAN CORPUSCULAR HGB CONC 34 % (32-36); MEAN CORPUSCULAR VOLUME 90 fL (79.0-98.0); MONOCYTES # (AUTO) 0.8 K/uL (0.0-1.0); MONOCYTES % (AUTO) 4.1 % (1.7-9.3); NEUTROPHILS # (AUTO) 16.7 K/uL (1.8-7.7); PLATELET COUNT (AUTO) 274 K/uL (130-430); RED BLOOD CELL COUNT(AUTO) 3.88 MIL/uL (4.2-6.2); RED CELL DISTRIBUTION WIDTH 14.8 % (9.0-15.0); WHITE BLOOD COUNT (AUTO) 19.2 K/uL (4.8-10.8)
--- NOTE | 2018-11-22 06:47 | NUR ---
CLOSING NOTE Patient resting in bed with eyes closed. Breathing unlabored and even on room air. No signs of distress, no needs at this time. Fall, safety, contact precautions in place. Bed in lowest position, brake on, alarm. IVF infusing as ordered. Will endorse cares to day shift nurse.
[2018-11-22 07:15] LABS: CALCIUM 7.2 mg/dL (8.4-11.0); CREATININE 1.71 mg/dL (0.55-1.30); POTASSIUM 3.8 mmol/L (3.5-5.1)
--- NOTE | 2018-11-22 07:20 | NUR ---
Opening note Patient resting in bed, A/O x4. No SOB, no complaints of pain. Iv site patent, intact.No infiltration noted. Bowel sounds active, Lung sounds clear. On contact Isolation precautions, fall precautions, reinforced. Bed kept in lowest position, educated patient on the call light system, verbalized understanding. Call light within reach. Will continue to monitor.
[2018-11-22 07:33] LABS: ALBUMIN 1.6 g/dL (3.4-4.8); TOTAL BILIRUBIN 1.5 mg/dL (0.0-1.0)
[2018-11-22 08:21] VITALS: BP_SYST 130
[2018-11-22] MEDS: ceFAZolin SODIUM 1 GM in D5W 50 ML IV SCH ×2 (09:09→22:23)
--- NOTE | 2018-11-22 11:45 | NUR ---
Post Void Bladder Scan: Scan was done, no residual urine detected.
[2018-11-22 12:40] VITALS: BP_SYST 121
--- NOTE | 2018-11-22 15:07 | NUR ---
Rounds Patient sitting up in chair at this time. Family at bedside. No complaints of pain. Patient ate lunch tolerated well. No nausea, no vomiting.
[2018-11-22 16:51] VITALS: BP_SYST 129
--- NOTE | 2018-11-22 18:21 | NUR ---
Closing note Patient sitting up in chair, bed, A/O x4. No SOB, no complaints of pain. Iv site patent, intact. and infusing as ordered. No infiltration noted. Bowel sounds active, Lung sounds clear. On contact Isolation precautions, and fall precautions, reinforced. Bed kept in lowest position, educated patient on the call light system, verbalized understanding. Call light within reach. All needs met at this time
--- NOTE | 2018-11-22 19:40 | NUR ---
OPENING NOTE Received report from Jasmin. Patient resting in bed awake, alert, oriented x4. Breathing unlabored and even on room air. No signs of distress, no needs at this time. Fall, safety, contact precautions in place. Bed in lowest position, brake on, call light within reach. at the bedside. IVF infusing as ordered. SCDs on. Will continue to monitor.
[2018-11-22 20:30] VITALS: BP_SYST 133
--- NOTE | 2018-11-22 21:17 | NUR ---
Patient resting in bed awake, alert, oriented x4. Breathing unlabored and even on room air. No signs of distress, no needs at this time. Fall, safety, contact precautions in place. Bed in lowest position, brake on, call light within reach. at the bedside. IVF infusing as ordered. SCDs on. Will continue to monitor.
--- NOTE | 2018-11-22 22:28 | NUR ---
New IVf tom. Abx hung
--- NOTE | 2018-11-22 23:05 | NUR ---
IV abx hung
[2018-11-22 23:13] VITALS: BP_SYST 128
--- NOTE | 2018-11-23 01:14 | NUR ---
Patient resting in bed with eyes closed. Breathing unlabored and even on room air. No signs of distress, no needs at this time. Fall, safety, contact precautions in place. Bed in lowest position, brake on, call light within reach. IVF infusing as ordered. SCDs on. Will continue to monitor.
[2018-11-23 05:40] LABS: BASOPHILS # (AUTO) 0.1 K/uL (0.0-0.2); EOSINOPHILS # (AUTO) 0.1 K/uL (0.0-0.4); EOSINOPHILS % (AUTO) 0.8 % (0.0-4.0); LYMPHOCYTES # (AUTO) 1.4 K/uL (1.0-5.5)
[2018-11-23] MEDS: KCL 20 mEq in D5NS 1000 mL 1,000 ML IV SCH ×2 (06:00→09:23)
[2018-11-23] MEDS: metroNIDAZOLE 500 mg/NS 100 ML IV SCH ×3 (06:09→22:15)
--- NOTE | 2018-11-23 06:15 | NUR ---
IV abx hung
--- NOTE | 2018-11-23 06:39 | NUR ---
CLOSING NOTE Patient resting in bed awake, alert, oriented x4. Breathing unlabored and even on room air. No signs of distress, no needs at this time. Fall, safety, contact precautions in place. Bed in lowest position, brake on, call light within reach. IVF infusing as ordered. SCDs on. Will endorse cares to day shift nurse.
[2018-11-23 06:58] LABS: BASOPHILS % (AUTO) 0.7 % (0.0-2.0); HEMATOCRIT 32.3 % (36-54); HEMOGLOBIN 10.7 g/dL (14.0-18.0); LYMPHOCYTES % (AUTO) 9.3 % (20.5-51.5); MEAN CORPUSCULAR HEMOGLOBIN 30 pg (27-31); MEAN CORPUSCULAR HGB CONC 33 % (32-36); MEAN CORPUSCULAR VOLUME 91 fL (79.0-98.0); MONOCYTES # (AUTO) 0.7 K/uL (0.0-1.0); MONOCYTES % (AUTO) 4.6 % (1.7-9.3); NEUTROPHILS % (AUTO) 84.6 % (40.0-70.0); PLATELET COUNT (AUTO) 335 K/uL (130-430); RED BLOOD CELL COUNT(AUTO) 3.57 MIL/uL (4.2-6.2); RED CELL DISTRIBUTION WIDTH 14.8 % (9.0-15.0)
--- NOTE | 2018-11-23 07:00 | NUR ---
Spoke to Lata from [facility]. Consent is needed for Indium WBC scan. Will endorse to day shift nurse to get signed. Lata will do blood draw at the bedside around [id number]. No other prep is need for scan. No MD signature is needed for consent. Lata wants to make sure patient will still be here tomorrow for blood to be re-administered to patient to complete Indium scan.
[2018-11-23 07:04] LABS: ALBUMIN 1.6 g/dL (3.4-4.8); CALCIUM 7.2 mg/dL (8.4-11.0); CREATININE 1.37 mg/dL (0.55-1.30); POTASSIUM 3.8 mmol/L (3.5-5.1); TOTAL BILIRUBIN 1.2 mg/dL (0.0-1.0)
[2018-11-23 07:07] LABS: WHITE BLOOD COUNT (AUTO) 15.4 K/uL (4.8-10.8)
--- NOTE | 2018-11-23 07:50 | NUR ---
opening note patient is resting in bed, A&Ox4, assessment completed, educated reclamation worker light system and plan of care, patient verbalized understanding, no signs of distress, IV site clean with fluids running with no signs of infiltration, call light within reach, side rails up, fall/safety precautions in place, contact precautions in place.
[2018-11-23 08:15] VITALS: BP_SYST 136
[2018-11-23] MEDS: ceFAZolin SODIUM 1 GM in D5W 50 ML IV SCH ×2 (08:40→21:20)
--- NOTE | 2018-11-23 09:30 | NUR ---
new IV fluids hung new bag of IV fluids hung, Dr Price came for rounds and put order to lower rate of fluids, no other needs addressed at this time, [facility] and lab will be coming in to draw blood for indium scan, fall/safety and contact precautions in place.
--- NOTE | 2018-11-23 11:20 | NUR ---
changed linen linen got soiled, changed linen for patient, no other needs at this time, fall/safety precautions in place.
[2018-11-23 12:13] VITALS: BP_SYST 126
--- NOTE | 2018-11-23 14:33 | NUR ---
scheduled flagyl educated patient on medication use and side effects, patient verbalized understanding, no other needs addressed at this time, fall/safety and contact precautions in place.
--- NOTE | 2018-11-23 15:33 | NUR ---
Nutrition F/U RD reviewed pt's current EMR including diet Hx, physician notes, nursing notes, pertinent labs/meds/procedures, care trends, and care activity. Current Diet Order: soft (low fiber/bland) x5 days Subjective information: Pt seen eating lunch w/ and family members at bedside. Pt reported fair appetite, tolerating diet well w/ no s/s N/V/C/D. Pt reported that he feels like he is eating too much as he is used to eating two meals a day, usually lunch and dinner. RD educated pt on soft (low fiber/bland) diet. Current PO intake: 63% average x9 meals Estimated Energy Expenditure (kcals/day) 7600-9399 kcal/day (30-35 kcal/kg CBW for Sepsis) Estimated Protein Required (g/day) 48-120 gm/day (0.6-1.5 gm/kg CBW for elevated Renal labs and Sepsis) Estimated Fluid Required (l/day) 2.4-2.8 L/day (30-35 ml/kg CBW for maintenance) Problem/Etiology/Signs/Symptoms Altered GI function related to unknown etiology as evidenced by Dx of acute colitis and dehydration. *improved Inadequate nutrient intake r/t altered GI function AEB PO intake <75% of estimated needs. *ongoing Expected Outcomes/Goals - Monitor appetite, and PO intakes w/ goal of pt meeting at least 75% of estimated nutritional needs, labs trending WNL, normal GI function, and skin integrity/wt maintenance Dietitian Recommendations * Recommend continuing soft (low fiber/bland) diet Follow Up Moderate Risk: F/U in 3-5 days
--- NOTE | 2018-11-23 15:37 | NUR ---
Dietitian Recommendations * Recommend continuing soft (low fiber/bland) diet LP, RD Please refer to Nutrition F/U for details.
--- NOTE | 2018-11-23 16:00 | NUR ---
rounds patient is resting in bed, informed them that I left a message for social work to speak to them about applying for disability, patient verbalized understanding, no other needs addressed at this time, fall/safety precautions in place.
[2018-11-23 16:18] VITALS: BP_SYST 128
--- NOTE | 2018-11-23 18:44 | NUR ---
closing note patient is resting in bed, no signs of distress, IV site clean with fluids running with no signs of infiltration, call light within reach, side rails up, fall/safety precautions in place, will endorse report to noc shift nurse that patient does not have to be on contact precautions, patient will have an Indium can tomorrow, patient is able to ambulate to the restroom.
--- NOTE | 2018-11-23 19:25 | NUR ---
OPENING NOTES Received pt and endorsement from day shift nurse. Pt is AAOx4, lying in bed. Pt on IVF D5,0.45NS with 20mEq KCL at 50ml/hr and infusing well on left hand G22. No complains of pain or discomfort at this time. No signs of acute distress or SOB noted. Encouraged to use call light when needed. Pt refused bed alarm and was educated on risks and benefits of alarm, pt verbalizes understanding. Safety precautions in place with 2 side rails up, bed locked and in lowest position. Call light with pt. Will continue to monitor.
[2018-11-23 21:18] VITALS: BP_SYST 134
--- NOTE | 2018-11-23 23:30 | NUR ---
ROUNDS Pt is resting in bed with both eyes closed. With visible chest rise and fall with unlabored breathing noted. Pt is easily arousable. IVF patent and infusing well. No complains of pain or discomfort. No signs of acute distress or SOB noted. Safety precautions in place and call light with pt. Will continue to monitor.
[2018-11-23 23:51] VITALS: BP_SYST 110
--- NOTE | 2018-11-24 03:03 | NUR ---
ROUNDS Pt is awake, alert and sitting on the chair. IVF infusing well. No complains of pain or discomfort. No signs of acute distress or SOB noted. Will continue to monitor.
[2018-11-24] MEDS: metroNIDAZOLE 500 mg/NS 100 ML IV SCH (05:14)
--- NOTE | 2018-11-24 07:00 | NUR ---
CLOSING NOTES Pt is resting in bed with both eyes closed, with visible chest rise and fall with unlabored breathing noted. IVF patent and infusing well. No complains of pain or discomfort at this time. No signs of acute distress or SOB noted. All needs attended throughout the shift. Safety precautions maintained with 2 side rails up, bed locked and in lowest position. Call light with pt. Will endorse to day shift nurse.
--- NOTE | 2018-11-24 07:50 | NUR ---
opening note patient is resting in bed, A&Ox4, assessment completed, educated extension agent light system and plan of care, patient verbalized understanding, no signs of distress, IV site clean with fluids running with no signs of infiltration, call light within reach, side rails up, fall/safety precautions in place, patient will go for indrium scan today.
[2018-11-24 08:00] VITALS: BP_SYST 127
[2018-11-24] MEDS: KCL 20 mEq in D5NS 1000 mL 1,000 ML IV SCH (08:22)
[2018-11-24] MEDS: ceFAZolin SODIUM 1 GM in D5W 50 ML IV SCH ×2 (08:23→20:08)
[2018-11-24 10:08] LABS: CEA 1.6 ng/ml (0.0-4.7); HEPATITIS A AB, IgM Negative (Negative); HEPATITIS B SURFACE AG Negative (Negative)
[2018-11-24 10:09] LABS: AFP, TUMOR MARKER 1.3; HEPATITIS B CORE AB, IgM Negative (Negative)
--- NOTE | 2018-11-24 10:20 | NUR ---
rounds patient is resting in bed, informed him [facility] will pick him up around 1300, patient verbalized understanding, no other needs addressed at this time, fall/safety precautions in place.
--- NOTE | 2018-11-24 11:23 | NUR ---
Complex Director Note Complex Director was notified that patient requested information on disability. SUPERVISOR TREE TRIMMING went to patient's room but patient was unavailable. SUPERVISOR TREE TRIMMING spoke with patient's son and left disability paperwork and recommended patient follow up with PCP for signature. SUPERVISOR TREE TRIMMING/ Social Service contact information was also provided. Complex Director will remain available upon request.
[2018-11-24 12:12] VITALS: BP_SYST 127
--- NOTE | 2018-11-24 12:59 | NUR ---
rounds patient in room, family in the room, informed them that they will be picking up patient in 30min for his test, patient verbalized understanding, no other needs at this time, fall/safety precautions in place.
--- NOTE | 2018-11-24 15:00 | NUR ---
patient back on unit from [facility], in stable condition.
[2018-11-24 16:00] VITALS: BP_SYST 125
--- NOTE | 2018-11-24 16:30 | NUR ---
IV RE-INSERTION: Complaining of pain to IV site. Restarted on right forearm. Successful after 1 attempts. Resumed current IVF of 20meQ of potassium in D5NS and regulated @ 50 per hour. Will observe for any signs of infiltration.
--- NOTE | 2018-11-24 18:53 | NUR ---
closing note patient is resting in bed, no signs of distress, IV site clean with fluids running with no signs of infiltration, call light within reach, side rails up, fall/safety precautions in place, will endorse report to noc shift nurse to continue with care, indium results are pending and patient and family are aware of it, tomorrow am to page Dr Delatorre for results once final report is submitted.
[2018-11-24 20:06] VITALS: BP_SYST 125
--- NOTE | 2018-11-24 20:06 | NUR ---
Opening notes Pt AAOx4, watching TV, VSS, afebrile. Pt denies any pain at this time. No s/s distress noted. IVF infusing as ordered R. FA 22G no s/s infiltration noted. Encouraged pt to call for assistance, pt verbalized understanding. Call light within reach. To monitor.
--- NOTE | 2018-11-24 23:29 | NUR ---
Rounds Pt asleep. No s/s distress noted. IVF infusing as ordered L. FA no s/s infiltration. Call light within reach. Safety measures in place. To monitor.
[2018-11-24 23:38] VITALS: BP_SYST 123
--- NOTE | 2018-11-25 03:20 | NUR ---
Rounds Pt asleep, no s/s distress or discomfort noted. IVF infusing as ordered on R. FA no s/s of infiltration. Call light within reach. To monitor.
--- NOTE | 2018-11-25 05:20 | NUR ---
Closing notes Pt alert, awake, ambulated to the bathroom. IV fluids infusing as ordered R. FA no s/s infitration noted. Pt denies any pain. Call lig within easy reach. Safety measures maintained. To endorse to AM nurse.
[2018-11-25 07:00] LABS: BASOPHILS # (AUTO) 0.1 K/uL (0.0-0.2); BASOPHILS % (AUTO) 0.5 % (0.0-2.0); EOSINOPHILS # (AUTO) 0.1 K/uL (0.0-0.4); EOSINOPHILS % (AUTO) 0.9 % (0.0-4.0); HEMATOCRIT 31.1 % (36-54); HEMOGLOBIN 10.5 g/dL (14.0-18.0); LYMPHOCYTES # (AUTO) 1.3 K/uL (1.0-5.5); LYMPHOCYTES % (AUTO) 9.6 % (20.5-51.5); MEAN CORPUSCULAR HEMOGLOBIN 31 pg (27-31); MEAN CORPUSCULAR HGB CONC 34 % (32-36); MEAN CORPUSCULAR VOLUME 90 fL (79.0-98.0); MONOCYTES # (AUTO) 0.6 K/uL (0.0-1.0); MONOCYTES % (AUTO) 4.5 % (1.7-9.3); NEUTROPHILS # (AUTO) 11.2 K/uL (1.8-7.7); NEUTROPHILS % (AUTO) 84.5 % (40.0-70.0); PLATELET COUNT (AUTO) 506 K/uL (130-430); RED BLOOD CELL COUNT(AUTO) 3.45 MIL/uL (4.2-6.2); RED CELL DISTRIBUTION WIDTH 14.6 % (9.0-15.0); WHITE BLOOD COUNT (AUTO) 13.3 K/uL (4.8-10.8)
[2018-11-25 07:21] LABS: CALCIUM 8.1 mg/dL (8.4-11.0); CREATININE 1.21 mg/dL (0.55-1.30); POTASSIUM 4.4 mmol/L (3.5-5.1)
[2018-11-25 07:50] VITALS: BP_SYST 122
[2018-11-25] MEDS: KCL 20 mEq in D5NS 1000 mL 1,000 ML IV SCH (07:51)
[2018-11-25] MEDS: ceFAZolin SODIUM 1 GM in D5W 50 ML IV SCH ×2 (09:28→21:16)
--- NOTE | 2018-11-25 09:30 | NUR ---
GI With loose stool , denies any abdominal pain , proper hand washing technique demonstrated, encouraged to increase oral fluid intake verbalized understanding.
[2018-11-25 12:35] VITALS: BP_SYST 118
--- NOTE | 2018-11-25 13:37 | NUR ---
PATIENT RESTING: Patient resting quietly. No acute distress noted. Vital signs within normal range.
[2018-11-25 16:47] VITALS: BP_SYST 123
--- NOTE | 2018-11-25 17:26 | NUR ---
Spoke to DR. Flores ID doctor for clarification of IV Rocephin 2 gm for 1 week only
--- NOTE | 2018-11-25 19:40 | NUR ---
OPENING NOTE Patient and bedside report received from day shift nurse. Patient is AAO x 4 and resting in bed. Patient's son, Kamran at bedside. IVF to right f/a infusing as ordered. Plan of care discussed; pt. is agreeable. Safety and fall precautions in place. Call light with patient. Will continue with plan of care.
[2018-11-25 20:00] VITALS: BP_SYST 124
--- NOTE | 2018-11-25 23:49 | NUR ---
RESTING Patient is resting in bed with eyes closed. No s/s of acute distress. Safety and fall precautions in place. Bed alarm remains off as requested by patient. Call light with patient. Will continue with plan of care.
[2018-11-25 23:53] VITALS: BP_SYST 127
[2018-11-26] MEDS: KCL 20 mEq in D5NS 1000 mL 1,000 ML IV SCH ×2 (02:03→18:36)
--- NOTE | 2018-11-26 03:27 | NUR ---
REQUESTED WATER Water pitcher was given to patient as requested. Denies any pain discomfort or any other needs at this time. Encouraged call light use. Bed alarm remains off as requested. Will monitor.
[2018-11-26 07:12] LABS: BASOPHILS # (AUTO) 0.1 K/uL (0.0-0.2); BASOPHILS % (AUTO) 0.6 % (0.0-2.0); EOSINOPHILS # (AUTO) 0.1 K/uL (0.0-0.4); EOSINOPHILS % (AUTO) 0.9 % (0.0-4.0); HEMATOCRIT 30.9 % (36-54); HEMOGLOBIN 10.5 g/dL (14.0-18.0); LYMPHOCYTES # (AUTO) 1.2 K/uL (1.0-5.5); LYMPHOCYTES % (AUTO) 10.2 % (20.5-51.5); MEAN CORPUSCULAR HEMOGLOBIN 31 pg (27-31); MEAN CORPUSCULAR HGB CONC 34 % (32-36); MEAN CORPUSCULAR VOLUME 90 fL (79.0-98.0); MONOCYTES # (AUTO) 0.6 K/uL (0.0-1.0); MONOCYTES % (AUTO) 5.4 % (1.7-9.3); NEUTROPHILS # (AUTO) 9.5 K/uL (1.8-7.7); NEUTROPHILS % (AUTO) 82.9 % (40.0-70.0); PLATELET COUNT (AUTO) 545 K/uL (130-430); RED BLOOD CELL COUNT(AUTO) 3.43 MIL/uL (4.2-6.2); RED CELL DISTRIBUTION WIDTH 14.7 % (9.0-15.0); WHITE BLOOD COUNT (AUTO) 11.4 K/uL (4.8-10.8)
--- NOTE | 2018-11-26 07:35 | NUR ---
Opening note Patient sitting up in chair at this time, no complaints of pain, no SOB. IV site patent and intact. Tolerating well, no nausea, no vomiting. On fall precautions, patient refused bed alarm, educated patient on the call light system, patient verbalized understanding, call light within reach. Will continue to monitor.
[2018-11-26 08:28] LABS: POTASSIUM 4.5 mmol/L (3.5-5.1)
[2018-11-26 08:29] LABS: CALCIUM 8.2 mg/dL (8.4-11.0)
[2018-11-26 08:30] VITALS: BP_SYST 122; BP_SYST 150
[2018-11-26 08:30] LABS: ALBUMIN 1.8 g/dL (3.4-4.8); CREATININE 1.24 mg/dL (0.55-1.30); TOTAL BILIRUBIN 0.8 mg/dL (0.0-1.0)
[2018-11-26] MEDS: ceFAZolin SODIUM 1 GM in D5W 50 ML IV SCH ×2 (08:31→21:24)
--- NOTE | 2018-11-26 11:00 | NUR ---
DC Planning: TILA requested BRITTNEE Serrato to consult with dr. Delatorre /dr. Ramirez for possible changing home IV ABX to PO. TILA was unable to arrange home health, unable to get auth due to pt's insurance is closed during weekend. Addendum: 11/26/18 at 1500 by Marya Davenport RN Per Dr Juan Ramon Serrato gave IV ABX to r/o endocarditis. She has not call the md. yet but will consult with dr. Ramirez during his rounding. Addendum: 11/26/18 at 1502 by Marya Davenport RN >> CM left message to dr. Ramirez of the above dcp and asking for the change of IV ABX evaluation for home discharge
--- NOTE | 2018-11-26 12:00 | NUR ---
Rounds Patient sitting up in chair, having lunch, tolerated well. No nausea, no vomiting, no complaints of pain.
[2018-11-26 13:11] VITALS: BP_SYST 118
--- NOTE | 2018-11-26 16:19 | NUR ---
Rounds Patient resting in bed, visitors at bedside. Iv patent and intact. No infiltration noted. No complaints of pain. Bed in lowest position, patient refusing bed alarm, call light within reach.
[2018-11-26 16:39] VITALS: BP_SYST 127
--- NOTE | 2018-11-26 18:25 | NUR ---
Closing note Patient sitting up in chair, no complaints of pain, no SOB. IV site patent and intact. Tolerating well, no nausea, no vomiting. On fall precautions, Call light within reach. Patient in stable condition, all needs met at this time.
--- NOTE | 2018-11-26 19:25 | NUR ---
OPENING NOTE Patient and bedside report received from day shift nurses. Patient is AAO x 4 and resting in bed. IVF to right f/a infusing as ordered. Plan of care discussed; pt. is agreeable. Safety and fall precautions in place. Call light with patient. Will continue with plan of care.
[2018-11-26 20:00] VITALS: BP_SYST 126
--- NOTE | 2018-11-26 20:30 | NUR ---
SHOWER Patient requested to shower; IV site was wrapped. SY Arreola with patient to assist.
--- NOTE | 2018-11-26 21:30 | NUR ---
NEW IV SITE Patient's IV to left f/a is no longer patent. d/c'd and applied gauze. New IV started to left f/a 22g; successful upon first attempt.
[2018-11-26 23:55] VITALS: BP_SYST 128
--- NOTE | 2018-11-27 03:12 | NUR ---
SLEEPING Patient is resting in bed; no s/s of acute distress. Visible chest rise and fall. Call light with patien. Will monitor.
--- NOTE | 2018-11-27 05:49 | NUR ---
AWAKE, NO NEEDS Patient is awake at this time. Denies any pain, discomfort or any needs at this time. Encouraged pt. to use call light for any assistance. Will monitor.
--- NOTE | 2018-11-27 06:38 | NUR ---
CLOSING NOTES All needs met throughout shift. Patient is resting in bed. No s/s of acute distress. IVF infusing as ordered. Safety and fall precautions maintained. Will endorse care to oncoming day shift nurse.
--- NOTE | 2018-11-27 07:25 | NUR ---
Opening note Patient sitting up in bed at this time. No complaints of pain, no SOB. IV site patent and intact. Tolerating well, no nausea, no vomiting. On fall precautions, patient refuses bed alarm, bed kept in lowest position, 2 side rails up. Educated patient on the call light system, patient verbalized understanding, call light within reach. Will continue to monitor.
[2018-11-27 07:54] VITALS: BP_SYST 123
[2018-11-27] MEDS: ceFAZolin SODIUM 1 GM in D5W 50 ML IV SCH ×2 (09:09→21:03)
--- NOTE | 2018-11-27 12:00 | NUR ---
Rounds Patient sitting up in bed, having lunch, tolerated well. No nausea, no vomiting, no complaints of pain. IV patent and intact.
[2018-11-27 12:35] VITALS: BP_SYST 122
--- NOTE | 2018-11-27 16:09 | NUR ---
Case mgt: Home Health for IV abx -authorization still pending from Jacobo Cooper--SUZANNA RN
[2018-11-27 16:30] VITALS: BP_SYST 128
[2018-11-27] MEDS: KCL 20 mEq in D5NS 1000 mL 1,000 ML IV SCH (17:01)
--- NOTE | 2018-11-27 18:44 | NUR ---
Closing note Patient resting in bed at this time, no complaints of pain, no SOB. IV site patent and intact. Tolerating well, no nausea, no vomiting. On fall precautions, Call light within reach. Patient in stable condition, all needs met at this time.
--- NOTE | 2018-11-27 19:18 | NUR ---
OPENING NOTES RECEIVED PATIENT IN BED AAOX4. DENIES PAIN AT THIS TIME. IV LINE INTACT TO LFA. PLAN OF CARE REVIEWED WITH PATIENT. CALL LIGHT WITH IN EASY REACH.
--- NOTE | 2018-11-27 21:03 | NUR ---
ATB DUE ANTIBIOTIC INFUSED. VITAL SIGNS STABLE. DENIES PAIN.
[2018-11-27 21:04] VITALS: BP_SYST 106
[2018-11-28 00:37] VITALS: BP_SYST 121
--- NOTE | 2018-11-28 01:15 | NUR ---
ROUNDS PATIENT RESTING IN BED. DENIES PAIN. IVF INFUSING. CALL LIGHT WITH IN REACH.
--- NOTE | 2018-11-28 04:50 | NUR ---
ROUNDS PATIENT RESTING IN BED. BREATHING UNLABORED. IVF INFUSING. CALL LIGHT WITH IN REACH.
[2018-11-28 06:17] LABS: BASOPHILS # (AUTO) 0.1 K/uL (0.0-0.2); EOSINOPHILS # (AUTO) 0.1 K/uL (0.0-0.4); HEMATOCRIT 32.3 % (36-54); HEMOGLOBIN 10.9 g/dL (14.0-18.0); LYMPHOCYTES # (AUTO) 1.4 K/uL (1.0-5.5); MEAN CORPUSCULAR HEMOGLOBIN 30 pg (27-31); MEAN CORPUSCULAR HGB CONC 34 % (32-36); MEAN CORPUSCULAR VOLUME 90 fL (79.0-98.0); MONOCYTES # (AUTO) 0.5 K/uL (0.0-1.0); MONOCYTES % (AUTO) 5.1 % (1.7-9.3); NEUTROPHILS # (AUTO) 7.4 K/uL (1.8-7.7); NEUTROPHILS % (AUTO) 77.9 % (40.0-70.0); PLATELET COUNT (AUTO) 614 K/uL (130-430); RED BLOOD CELL COUNT(AUTO) 3.58 MIL/uL (4.2-6.2); RED CELL DISTRIBUTION WIDTH 14.7 % (9.0-15.0); WHITE BLOOD COUNT (AUTO) 9.5 K/uL (4.8-10.8)
[2018-11-28 06:19] LABS: ALBUMIN 2.1 g/dL (3.4-4.8); CALCIUM 8.2 mg/dL (8.4-11.0); CREATININE 1.15 mg/dL (0.55-1.30); POTASSIUM 4.2 mmol/L (3.5-5.1); TOTAL BILIRUBIN 0.8 mg/dL (0.0-1.0)
--- NOTE | 2018-11-28 06:43 | NUR ---
CLOSING NOTES PATIENT RESTING IN BED. IVF INFUSING ORDERED. NO PAIN COMPLAINTS THROUGHOUT SHIFT. PATIENT NEEDS ATTENDED. CALL LIGHT WITH IN REACH. BED IN LOWEST LOCKED POSITION.
--- NOTE | 2018-11-28 07:35 | NUR ---
Opening note Patient resting in bed at this time, A/O x4 No complaints of pain, no SOB. IV site patent and intact. Tolerating well, no nausea, no vomiting. On fall precautions, patient refuses bed alarm, bed kept in lowest position, 2 side rails up. Educated patient on the call light system, patient verbalized understanding, call light within reach. Will continue to monitor.
[2018-11-28 08:30] VITALS: BP_SYST 123
[2018-11-28] MEDS: ceFAZolin SODIUM 1 GM in D5W 50 ML IV SCH ×2 (08:45→09:00)
--- NOTE | 2018-11-28 09:30 | NUR ---
Rounds Patient sitting up in bed, no complaints of pain or discomfort. IV Antibiotic given as ordered. IV site patent and intact, no infiltration noted. Patient in stable condition.
--- NOTE | 2018-11-28 12:02 | NUR ---
Discharge Planning: DCP faxed insurance information regarding IV medication for discharge to [facility] (f [phone] p [phone]), [facility] (f [phone] p [phone]) DCP to follow up. Addendum: 11/28/18 at 1403 by Sally MARLEY [place]RECTION---[facility] (f [phone] p [phone]) is contracted with patients insurance per Nelly
--- NOTE | 2018-11-28 12:38 | NUR ---
Rounds Patient sitting up in bed, eating lunch. Tolerating well, no nausea, no vomiting noted. No complaints of pain.
[2018-11-28 13:32] VITALS: BP_SYST 121
--- NOTE | 2018-11-28 13:34 | NUR ---
Called Project Finance Analyst irineo Malhotra, needing updates regarding DC planning, will follow up as needed.
--- NOTE | 2018-11-28 15:27 | NUR ---
Nutrition F/U RD reviewed pt's current EMR including diet Hx, physician notes, nursing notes, pertinent labs/meds/procedures, care trends, and care activity. Current Diet Order: soft (low fiber/bland) x10 days Subjective information: Pt seen eating lunch w/ at bedside. Pt reported improved appetite, tolerating diet well. Pt denied any N/V/C/D. Pt reported BM x1 (soft) today. Pt had no nutrition-related concerns. Wt has been stable since admission. Current PO intake: 83% average x11 meals Estimated Energy Expenditure (kcals/day) 7241-1103 kcal/day (30-35 kcal/kg CBW for Sepsis) Estimated Protein Required (g/day) 48-120 gm/day (0.6-1.5 gm/kg CBW for elevated Renal labs and Sepsis) Estimated Fluid Required (l/day) 2.4-2.8 L/day (30-35 ml/kg CBW for maintenance) Problem/Etiology/Signs/Symptoms Altered GI function related to unknown etiology as evidenced by Dx of acute colitis and dehydration. *improved Inadequate nutrient intake r/t altered GI function AEB PO intake <75% of estimated needs. *improved Expected Outcomes/Goals - Monitor appetite, and PO intakes w/ goal of pt meeting at least 75% of estimated nutritional needs, labs trending WNL, normal GI function, and skin integrity/wt maintenance Dietitian Recommendations * Recommend continuing soft (low fiber/bland) diet Follow Up Low Risk: F/U in 3-5 days
--- NOTE | 2018-11-28 15:30 | NUR ---
Dietitian Recommendations * Recommend continuing soft (low fiber/bland) diet LP, RD Please refer to Nutrition F/U for details.
[2018-11-28] MEDS: KCL 20 mEq in D5NS 1000 mL 1,000 ML IV SCH (15:39)
--- NOTE | 2018-11-28 15:56 | NUR ---
Rounds Patient resting in bed at this time, NO complaints of pain. IV patent and intact. IV fluids infusing as ordered. No adverse side effects noted.
[2018-11-28 16:09] VITALS: BP_SYST 127
--- NOTE | 2018-11-28 17:30 | NUR ---
Spoke with case management custodial operations manager unable to get a hold of insurance regarding authorization of [facility], stated to call [phone], and speak to September for IV antibiotics. Patient can be discharged after home health and IV antibiotics are set up, Will endorse to rnfa nurse.
--- NOTE | 2018-11-28 18:27 | NUR ---
Closing note Patient resting in bed at this time, no complaints of pain, no SOB. IV site patent and intact. Tolerating well, no nausea, no vomiting. On fall precautions, Call light within reach. Patient in stable condition, awaiting discharge, all needs met at this time.
--- NOTE | 2018-11-28 18:55 | NUR ---
[facility] CALLED AND FOLLOW UP FOR THE HOME HEALTH SPOKE WITH ETHAN CRANDALL. THEY STATED THAT RAY IS THE CORNATOR IS THE FOR THE CASE. THEY NEED KEILA TO FOLLOW UP TOMORROW
[2018-11-28 20:05] VITALS: BP_SYST 113
--- NOTE | 2018-11-28 20:15 | NUR ---
INITIAL NOTES: BEDSIDE REPORT DONE EARLIER FROM AM RN. PATIENT IN BED AWAKE ORIENTED X4. DENIES PAIN NOR SOB,. IVF INFUSING WELL TO LEFT AC ,SITE CLEAR. UPDATED ABOUT D/C TONIGHT ,WILL NOT BE TONIGHT DUE TO INCOMPLETE IMPORTANT PAPER WORKS THAT [facility] CM NEEDS TO PROVIDE TO INSURANCE AND TO INFUSION COMPANY. WILL MONITOR CLOSELY. CALL LIGHT WITHIN REACH. BED IN LOW POSITION. SAFETY MEASURES DISCUSSED WITH UNDERSTANDING.
--- NOTE | 2018-11-28 22:00 | NUR ---
rounds: deines pain nor sob. ivf infusing well.
--- NOTE | 2018-11-29 | NUR ---
ROUNDS: PATIENT SLEEPING .BREATHING PATTERN REGULAR.. CALL LIGHT WITHIN REACH.
[2018-11-29 00:31] VITALS: BP_SYST 121
[2018-11-29] MEDS: ceFAZolin SODIUM 1 GM in D5W 50 ML IV SCH ×2 (02:40→08:49)
--- NOTE | 2018-11-29 02:40 | NUR ---
ROUNDS: SLEEPING ,DENIES PAIN. VOIDED VIA URINAL. DUE IVPB DUE AT 2100 HR GIVEN THIS TIME.
[2018-11-29 08:05] VITALS: BP_SYST 146
--- NOTE | 2018-11-29 08:07 | NUR ---
OPENING NOTE patient received resting in bed A&O x4, patient denies any acute distress or pain at this time, breathing is even and unlabored on room air, IVF infusing as ordered, educated patient on plan of care and call light system, will continue to monitor, safety precautions in place, call light within reach.
[2018-11-29] MEDS: KCL 20 mEq in D5NS 1000 mL 1,000 ML IV SCH (08:49)
--- NOTE | 2018-11-29 10:30 | NUR ---
NOTES patient is resting in bed A&O x4, patient awaiting home health set up, patient denies any acute distress or pain, breathing is even and unlabored on room air, will continue to monitor, safety precautions in place, call light within reach.
--- NOTE | 2018-11-29 10:34 | NUR ---
DC Planning: Confirmed with dr. Ramirez /evelyn to give Ancef via IV push instead of IVPB may be infused by [facility] infusion staff. BRITTNEE Akins made aware. The pt may be discharged home today. [facility] will contact pt's spouse to set up time to deliver medication and set up time for IV med services. Mable will notify the dc POC to pt. . Addendum: 11/29/18 at 1449 by Marya Davenport RN >> Regarding HH set up: The pt is independent with adl's and does not meet criteria for the HH. [facility] [employer] has nurse to administer ABX. Patient and Elizabeth, spouse made aware.
[2018-11-29 11:09] VITALS: BP_SYST 146
--- NOTE | 2018-11-29 11:56 | NUR ---
D/C Patient Patient given medication reconciliation form and D/C instructions. Exit Care provided. Patient verbalized understanding. MD discussed with patient the results and treatment provided. Ambulatory with steady gait for discharge to home. Patient in stable condition, ID band removed. IV catheter removed, intact and dressing applied, no active bleeding. Rx of ANCEF given. Patient educated on pain management. All belongings sent with patient.
== END 2018-11-29 12:20 | disposition home health service (06) | DRG 871 ==
LOC: SED 11:03 → STU 14:45 → SMU 11-18 20:44
PROVIDERS: ADMIT Family Medicine; ATTEND Family Medicine
PROC: 0DBK8ZX Excision of Ascending Colon, Via Natural or Artificial Opening Endoscopic, Diagnostic (ICD-10-PCS; 2018-11-18)
PROC: 0DBM8ZZ Excision of Descending Colon, Via Natural or Artificial Opening Endoscopic (ICD-10-PCS; principal; 2018-11-18 10:00)
DX: A41.01 Sepsis due to Methicillin susceptible Staphylococcus aureus (principal); E43 Unspecified severe protein-calorie malnutrition; N12 Tubulo-interstitial nephritis, not specified as acute or chronic; N17.9 Acute kidney failure, unspecified; K51.80 Other ulcerative colitis without complications; D69.6 Thrombocytopenia, unspecified; R21 Rash and other nonspecific skin eruption; E86.0 Dehydration; K64.8 Other hemorrhoids; E83.42 Hypomagnesemia; K63.5 Polyp of colon; Z68.26 Body mass index [BMI] 26.0-26.9, adult
CPT/HCPCS: 36415; 45380; 70450-TC; 71045; 74018; 76700-TC; 80048; 80053; 80074; 80307; 81000-TC; 82105; 82140-TC; 82378; 82977-TC; 83605; 83690-TC; 83735-TC; 83880; 84100-TC; 84439; 84484; 85007; 85025; 85027; 85610-TC; 85651-TC; 85730-TC; 86709; 87040-TC; 87045-TC; 87046; 87177; 87186-TC; 87230-TC; 88305; 93005; 96365; 96367; 99285; A9547; G0378; G0480; G0482; J0690; J0692; J0696; J1956; J2175; J2250; J2543; J3370; J3475; J3480; J3490; J7030; J7042; J7050; J7060